=== PATIENT | female | born 1960 | race Caucasian/White ===

== ENCOUNTER 2020-10-01 21:32 | Emergency (ER) | payer MEDICAID, OTHER ==
[~2020-10-01] VITALS: Ht 162.6 cm; Wt 84.1 kg
[2020-10-01 21:48] VITALS: BP 148/94
[2020-10-01] MEDS ORDERED: sulfamethoxazole/trimethoprim DS (800/160mg) tablet PO ONE (23:35)
[2020-10-01] MEDS ORDERED: ondansetron 4mg rapidly disintigrating tab PO ONE (23:35)
[2020-10-01] MEDS ORDERED: HYDROcodone/acetaminophen 5mg/325mg tablet PO ONE (23:35)
[2020-10-01] MEDS ORDERED: cephalexin 250mg capsule PO ONE (23:35)
[2020-10-01] MEDS ORDERED: SULF1TAB45 PO (23:43)
[2020-10-01] MEDS ORDERED: ONDA4TAB6 PO (23:43)
[2020-10-01] MEDS ORDERED: HYDR-3965 PO (23:43)
[2020-10-01] MEDS ORDERED: CEPH250T PO (23:43)
[2020-10-01] MEDS ORDERED: IBUP-1984 PO (23:43)
== END 2020-10-01 23:55 | disposition home or self-care (01) ==
LOC: ER 21:33
DX: S91.114A Laceration without foreign body of right lesser toe(s) without damage to nail, initial encounter (principal); L08.9 Local infection of the skin and subcutaneous tissue, unspecified; L03.115 Cellulitis of right lower limb; Z79.2 Long term (current) use of antibiotics; Z79.899 Other long term (current) drug therapy; X58.XXXA Exposure to other specified factors, initial encounter; Y93.89 Activity, other specified; Y92.89 Other specified places as the place of occurrence of the external cause; Y99.8 Other external cause status
CPT/HCPCS: 99284